=== PATIENT | female | born 1955 | race Caucasian/White ===

== ENCOUNTER 2017-04-28 14:41 | Emergency (ER) | payer OTHER ==
[~2017-04-28] VITALS: Ht 149.9 cm; Wt 70.3 kg
--- NOTE | ~2017-04-28 | EKG ---
[place] [address] [address] [facility] [address] [place] [address] ELECTROCARDIOGRAM REPORT Name: DEANDRE MARTINEZ Room #: DEP Ge#: [id number] Admission: 04/28/17 Attend Phys: Discharge: 04/28/17 Date of : 57 Report #: [id number] THIS REPORT FOR: //name// [facility] ED Test Date: 2017-04-28 Test Time: 15:18:22 Pat Name: DEANDRE MARTINEZ Department: Room: Gender: F Psych Coordinator: Paulino WHIPPLE RN : 1955 Requested By: Joey Correia Order Number: [id number] MD: Figueroa Ceja Measurements Intervals [place] Rate: 68 P: 37 [place]: 178 QRS: 25 QRSD: 92 T: 56 QT: 391 QTc: 416 Interpretive Statements Sinus rhythm No significant abnormality No previous ECG available for comparison Electronically Signed On 04-29-2017 7:56:20 GUITAR TECHNICIAN by Figueroa Ceja [email or web address] <ELECTRONICALLY SIGNED> By: Figueroa Ceja MD, [facility] 04/29/17 0756 1518 1518 Figueroa Ceja MD, FAC /EPI
[2017-04-28 15:53] LABS: ABSOLUTE NEUTROPHILS 7.2 thou/uL (1.4-8.2); BASOPHILS 0.7 % (0.0-2.0); EOSINOPHILS 0.4 % (0.0-3.0); HEMATOCRIT 44.3 % (37.0-47.0); HEMOGLOBIN 15.2 gm/dL (12.0-15.0); LYMPHOCYTES 9.9 % (24.0-44.0); MCH 30.9 pg (26.0-34.0); MCHC 34.4 g/dL (28.0-37.0); MCV 89.9 fL (80.0-100.0); MONOCYTES 10.3 % (1.0-8.0); PLATELET COUNT 236 thou/uL (150-400); POLYS 78.7 % (36.0-66.0); RBC 4.93 mil/uL (4.20-5.00); RDW 13.4 % (10.5-14.5); WBC 9.2 thou/uL (4.0-11.0)
[2017-04-28 16:01] LABS: ANION GAP 6 mmol/L (7-16); BUN 23 mg/dL (7-18); CALCIUM 9.1 mg/dL (8.5-10.1); CHLORIDE 103 mmol/L (98-107); CO2 28 mmol/L (21-32); GLUCOSE 116 mg/dL (74-106); POTASSIUM 4.3 mmol/L (3.5-5.1); SODIUM 137 mmol/L (136-145)
[2017-04-28 16:10] LABS: ALBUMIN 3.4 g/dL (3.4-5.0); LIPASE 253 U/L (73-393); SGOT 20 U/L (15-37); SGPT 42 U/L (30-65); TOTAL PROTEIN 6.3 g/dL (6.4-8.2); TROPONIN-I < 0.04 ng/mL (<0.06)
[2017-04-28] MEDS ORDERED: NITROGLYCERIN0.4 MG SUBLING (16:26)
[2017-04-28] MEDS ORDERED: METOPROLOL SUCC50 MG PO (16:27)
[2017-04-28] MEDS ORDERED: LIORESAL 10 MG10 MG PO (16:27)
[2017-04-28] MEDS ORDERED: LOSARTAN POTAS100 MG PO (16:28)
[2017-04-28] MEDS ORDERED: ROPINIROLE HCL2 MG PO (16:28)
[2017-04-28] MEDS ORDERED: ATROVENT HFA14 GM INH (16:30)
[2017-04-28] MEDS ORDERED: VITAMIN D-32000 UNI1 PO (16:30)
[2017-04-28] MEDS ORDERED: WELLBUTRIN SR150 MG PO (16:30)
[2017-04-28] MEDS ORDERED: ATIVAN0.5 MG PO (16:31)
[2017-04-28] MEDS ORDERED: TRAMADOL 50 MG50 MG PO (16:31)
[2017-04-28] MEDS ORDERED: OMEPRAZOLE 20 M20 M1 PO (16:31)
[2017-04-28] MEDS ORDERED: ADVAIR 500-501 EACH INH (16:32)
[2017-04-28] MEDS ORDERED: NORVASC5 MG PO (16:32)
[2017-04-28] MEDS ORDERED: ZOFRAN ODT4 MG PO ×2 (16:32→18:15)
[2017-04-28] MEDS ORDERED: PRAVACHOL40 MG PO (16:32)
[2017-04-28 17:27] LABS: URINE BILIRUBIN NEGATIVE (Negative); URINE BLOOD NEGATIVE (Negative); URINE CLARITY CLEAR; URINE COLOR YELLOW; URINE GLUCOSE-RANDOM* NEGATIVE (Negative); URINE KETONES NEGATIVE (Negative); URINE LEUKOCYTES-REFLEX NEGATIVE (Negative); URINE NITRITE-REFLEX NEGATIVE (Negative); URINE PROTEIN (DIPSTICK) NEGATIVE (Negative); URINE UROBILINOGEN 0.2 E.U./dl (0.2-1.0)
[2017-04-28] MEDS ORDERED: CARAFATE 11 GM/10 M1 PO (18:15)
[2017-04-28] MEDS ORDERED: PHENERGAN 25 MG25 M1 PO (18:15)
[2017-04-28] MEDS ORDERED: PANTOPRAZOLE SO40 M1 PO (18:15)
== END 2017-04-28 18:42 | disposition home or self-care (01) ==
LOC: ER 14:41
PROVIDERS: Emergency Medicine
DX: K21.9 Gastro-esophageal reflux disease without esophagitis (principal); Z90.49 Acquired absence of other specified parts of digestive tract; Z88.1 Allergy status to other antibiotic agents; Z88.8 Allergy status to other drugs, medicaments and biological substances

== ENCOUNTER 2018-10-19 02:43 | Emergency (ER) | payer BC ==
[~2018-10-19] VITALS: Ht 149.9 cm; Wt 68.0 kg
[~2018-10-19 02:43] MED LIST: ADVAIR 500-501 EACH INH; ATIVAN0.5 MG PO; ATROVENT HFA14 GM INH; CARAFATE 11 GM/10 M1 PO; LIORESAL 10 MG10 MG PO; LOSARTAN POTAS100 MG PO; METOPROLOL SUCC50 MG PO; NITROGLYCERIN0.4 MG SUBLING; NORVASC5 MG PO; OMEPRAZOLE 20 M20 M1 PO; PANTOPRAZOLE SO40 M1 PO; PHENERGAN 25 MG25 M1 PO; PRAVACHOL40 MG PO; ROPINIROLE HCL2 MG PO; TRAMADOL 50 MG50 MG PO; VITAMIN D-32000 UNI1 PO; WELLBUTRIN SR150 MG PO; ZOFRAN ODT4 MG PO
[2018-10-19 04:09] LABS: ABSOLUTE NEUTROPHILS 3.8 thou/uL (1.4-8.2); BASOPHILS 0.7 % (0.0-2.0); EOSINOPHILS 3.1 % (0.0-3.0); HEMATOCRIT 44.3 % (37.0-47.0); HEMOGLOBIN 15.1 gm/dL (12.0-15.0); LYMPHOCYTES 14.8 % (24.0-44.0); MCH 31.2 pg (26.0-34.0); MCV 91.7 fL (80.0-100.0); MONOCYTES 10.3 % (1.0-8.0); PLATELET COUNT 243 thou/uL (150-400); POLYS 71.1 % (36.0-66.0); RBC 4.83 mil/uL (4.20-5.00); RDW 13.6 % (10.5-14.5); WBC 5.4 thou/uL (4.0-11.0)
[2018-10-19 04:14] LABS: ANION GAP 10 mmol/L (7-16); BUN 19 mg/dL (7-18); CALCIUM 9.6 mg/dL (8.5-10.1); CHLORIDE 104 mmol/L (98-107); CO2 28 mmol/L (21-32); CREATININE 0.9 mg/dL (0.6-1.0); GLUCOSE 109 mg/dL (74-106); SODIUM 142 mmol/L (136-145)
[2018-10-19 04:25] LABS: ALBUMIN 3.8 g/dL (3.4-5.0); LIPASE 150 U/L (73-393); SGOT 18 U/L (15-37); SGPT 34 U/L (30-65); TOTAL BILIRUBIN 0.3 mg/dL (<0.1-1.0); TOTAL PROTEIN 7.3 g/dL (6.4-8.2); TROPONIN-I <0.06 ng/mL (<0.06)
[2018-10-19] MEDS ORDERED: ONDANSETRON ODT8 MG PO (05:11)
[2018-10-19] MEDS ORDERED: CLONIDINE0.1 PO (05:11)
[2018-10-19 05:58] LABS: URINE BILIRUBIN NEGATIVE (Negative); URINE BLOOD TRACE (Negative); URINE CLARITY SL CLOUDY; URINE COLOR YELLOW; URINE GLUCOSE-RANDOM* NEGATIVE (Negative); URINE KETONES NEGATIVE (Negative); URINE NITRITE-REFLEX NEGATIVE (Negative); URINE PROTEIN (DIPSTICK) TRACE (Negative); URINE SPECIFIC GRAVITY 1.015 (1.005-1.035); URINE UROBILINOGEN 0.2 E.U./dl (0.2-1.0)
[2018-10-19 06:05] VITALS: BP 154/88
[2018-10-19 06:07] LABS: URINE LEUKOCYTES-REFLEX 1+ (Negative)
[2018-10-19 06:20] LABS: CASTS None Seen /LPF (None Seen); SQUAMOUS 4-10 Moderate /LPF (0-3)
[2018-10-19 06:21] LABS: BACTERIA-REFLEX 1-9 Few /HPF (None Seen); CRYSTALS None Seen /LPF (None Seen); URINE RBC 0-2 Rare /HPF (0-2); URINE WBC-REFLEX >25 Many /HPF (0-5); WBC CLUMPS Moderate (None Seen)
--- NOTE | 2018-10-19 08:39 | EKG ---
[place] [address] [place] [address] ELECTROCARDIOGRAM REPORT Name: DEANDRE MARTINEZ Room #: DEP [place]#: [id number] Admission: 10/19/18 Attend Phys: Discharge: 10/19/18 Date of : 57 Report #: [id number] THIS REPORT FOR: //name// [facility] ED Test Date: 2018-10-19 Test Time: 04:03:47 Pat Name: DEANDRE MARTINEZ Department: Room: Gender: F Communications Project Manager: KAILA : 1955 Requested By: Clay Cespedes Order Number: [id number] MD: Figueroa Ceja Measurements Intervals [place] Rate: 91 P: 35 TN: 164 QRS: 19 QRSD: 82 T: 33 QT: 368 QTc: 453 Interpretive Statements Sinus rhythm Normal tracing Compared to ECG 04/28/2017 15:18:22 No significant change was found Electronically Signed On 10-19-2018 8:39:42 CDT by Figueroa Ceja [email or web address] <ELECTRONICALLY SIGNED> By: Figueroa Ceja MD, [facility] 10/19/18 0839 [id number] Figueroa Ceja MD, FACC /EPI
== END 2018-10-19 06:05 | disposition home or self-care (01) ==
LOC: ER 02:43
PROVIDERS: Emergency Medicine
DX: I16.0 Hypertensive urgency (principal); J98.01 Acute bronchospasm; R11.2 Nausea with vomiting, unspecified; Z85.528 Personal history of other malignant neoplasm of kidney; Z90.5 Acquired absence of kidney; Z90.49 Acquired absence of other specified parts of digestive tract; Z88.1 Allergy status to other antibiotic agents; Z88.2 Allergy status to sulfonamides

== ENCOUNTER 2019-02-20 01:53 | Emergency (ER) | payer BC ==
[~2019-02-20] VITALS: Ht 149.9 cm; Wt 67.6 kg
[2019-02-20 01:53] VITALS: BP 169/81
[~2019-02-20 01:53] MED LIST changes: +CLONIDINE0.1 PO; +ONDANSETRON ODT8 MG PO
== END 2019-02-20 03:14 | disposition home or self-care (01) ==
LOC: ER 01:53
DX: M79.671 Pain in right foot (principal); Z88.1 Allergy status to other antibiotic agents; Z88.2 Allergy status to sulfonamides; Z90.5 Acquired absence of kidney

== ENCOUNTER 2019-04-11 21:08 | Emergency (ER) | payer BC ==
[~2019-04-11] VITALS: Ht 149.9 cm; Wt 62.1 kg
[2019-04-11 21:41] LABS: URINE BILIRUBIN NEGATIVE (Negative); URINE BLOOD 2+ (Negative); URINE CLARITY CLOUDY; URINE COLOR YELLOW; URINE GLUCOSE-RANDOM* NEGATIVE (Negative); URINE KETONES TRACE (Negative); URINE NITRITE-REFLEX NEGATIVE (Negative); URINE PROTEIN (DIPSTICK) 2+ (Negative); URINE SPECIFIC GRAVITY 1.015 (1.005-1.035); URINE UROBILINOGEN 0.2 E.U./dl (0.2-1.0)
[2019-04-11 21:47] LABS: URINE LEUKOCYTES-REFLEX 3+ (Negative)
[2019-04-11 21:53] LABS: HEMATOCRIT 40.8 % (37.0-47.0); HEMOGLOBIN 13.6 gm/dL (12.0-15.0); MCH 30.3 pg (26.0-34.0); MCHC 33.2 g/dL (28.0-37.0); MCV 91.1 fL (80.0-100.0); PLATELET COUNT 227 thou/uL (150-400); RBC 4.48 mil/uL (4.20-5.00); RDW 13.5 % (10.5-14.5); WBC 11.3 thou/uL (4.0-11.0)
[2019-04-11 22:01] LABS: CALCIUM 8.4 mg/dL (8.5-10.1); CREATININE 1.6 mg/dL (0.6-1.0); POTASSIUM 3.2 mmol/L (3.5-5.1)
[2019-04-11 22:07] LABS: ALBUMIN 3.3 g/dL (3.4-5.0); TOTAL BILIRUBIN 0.4 mg/dL (<0.1-1.0); TOTAL PROTEIN 7.5 g/dL (6.4-8.2)
[2019-04-11 22:15] LABS: URINE WBC-REFLEX >25 Many /HPF (0-5)
[2019-04-11 22:16] LABS: BACTERIA-REFLEX 1-9 Few /HPF (None Seen); CASTS None Seen /LPF (None Seen); CRYSTALS None Seen /LPF (None Seen); SQUAMOUS 0-3 Few /LPF (0-3); URINE RBC 0-2 Rare /HPF (0-2)
[2019-04-11 22:43] LABS: ABSOLUTE NEUTROPHILS 9.5 thou/uL (1.4-8.2); ANISOCYTOSIS 1+
[2019-04-11] MEDS ORDERED: CEFDINIR300 MG PO (23:36)
[2019-04-11 23:57] VITALS: BP 122/62
== END 2019-04-12 00:07 | disposition home or self-care (01) ==
LOC: ER 21:08
PROVIDERS: Emergency Medicine
DX: N39.0 Urinary tract infection, site not specified (principal); Z88.2 Allergy status to sulfonamides; Z88.1 Allergy status to other antibiotic agents; Z91.040 Latex allergy status

== ENCOUNTER 2019-05-18 11:55 | Emergency (ER) | payer BC ==
[~2019-05-18] VITALS: Ht 149.9 cm; Wt 61.2 kg
[~2019-05-18 11:55] MED LIST changes: +CEFDINIR300 MG PO
[2019-05-18 12:25] VITALS: BP 182/92
[2019-05-18 13:40] LABS: ABSOLUTE NEUTROPHILS 3.4 thou/uL (1.4-8.2); BASOPHILS 1.8 % (0.0-2.0); EOSINOPHILS 1.3 % (0.0-3.0); HEMATOCRIT 42.5 % (37.0-47.0); HEMOGLOBIN 14.2 gm/dL (12.0-15.0); LYMPHOCYTES 15.2 % (24.0-44.0); MCH 30.7 pg (26.0-34.0); MCHC 33.5 g/dL (28.0-37.0); MCV 91.9 fL (80.0-100.0); MONOCYTES 9.4 % (1.0-8.0); PLATELET COUNT 281 thou/uL (150-400); POLYS 72.3 % (36.0-66.0); RBC 4.63 mil/uL (4.20-5.00); RDW 13.9 % (10.5-14.5); WBC 4.7 thou/uL (4.0-11.0)
--- NOTE | 2019-05-18 13:44 | EKG ---
[facility] [place] [address] ELECTROCARDIOGRAM REPORT Name: DEANDRE MARTINEZ Chinmay Room #: PRE [facility].#: [id number] Admission: Attend Phys: Discharge: Date of : 57 Report #: [id number] THIS REPORT FOR: cc: Jose Juan Pena MD ~ THIS REPORT FOR: //name// [facility] ED Test Date: 2019-05-18 Test Time: 12:51:25 Pat Name: DEANDRE MARTINEZ Department: Room: Gender: F Beck Operator: dora : 1955 Requested By: Manuel Bridges Order Number: [id number] MD: Jose Juan Pena Measurements Intervals [place] Rate: 96 P: 54 [place]: 154 QRS: 41 QRSD: 85 T: 55 QT: 343 QTc: 434 Interpretive Statements Sinus rhythm Baseline wander in lead(s) V4 Compared to ECG 10/19/2018 04:03:47 No significant changes Electronically Signed On 05-18-2019 13:42:45 CDT by Jose Juan Pena [email or web address] <ELECTRONICALLY SIGNED> By: Jose Juan Pena MD 05/18/19 1342 1251 50 Jose Juan Pena MD /JACINTO
[2019-05-18 13:48] LABS: ANION GAP 10 mmol/L (7-16); BUN 12 mg/dL (7-18); CALCIUM 10.4 mg/dL (8.5-10.1); CHLORIDE 99 mmol/L (98-107); CO2 28 mmol/L (21-32); CREATININE 1.3 mg/dL (0.6-1.0); GLUCOSE 91 mg/dL (74-106); POTASSIUM 3.8 mmol/L (3.5-5.1); SODIUM 137 mmol/L (136-145)
[2019-05-18 13:58] LABS: ALBUMIN 4.1 g/dL (3.4-5.0); LIPASE 93 U/L (73-393); SGOT 16 U/L (15-37); SGPT 18 U/L (30-65); TOTAL BILIRUBIN 0.4 mg/dL (<0.1-1.0); TOTAL PROTEIN 7.7 g/dL (6.4-8.2); TROPONIN-I <0.06 ng/mL (<0.06)
[2019-05-18] MEDS ORDERED: DOXYCYCLINE 10100 MG PO (14:19)
[2019-05-18] MEDS ORDERED: PROMETH-CODEIN 65 ML PO (14:19)
== END 2019-05-18 15:20 | disposition home or self-care (01) ==
LOC: ER 11:55
PROVIDERS: Physician Assistant
DX: J32.9 Chronic sinusitis, unspecified (principal); R10.13 Epigastric pain; Z87.440 Personal history of urinary (tract) infections; Z90.49 Acquired absence of other specified parts of digestive tract; Z91.040 Latex allergy status; Z88.1 Allergy status to other antibiotic agents; Z88.2 Allergy status to sulfonamides

== ENCOUNTER 2019-06-13 18:36 | Emergency (ER) | payer BC ==
[~2019-06-13] VITALS: Ht 149.9 cm; Wt 61.2 kg
[~2019-06-13 18:36] MED LIST changes: +DOXYCYCLINE 10100 MG PO; +PROMETH-CODEIN 65 ML PO
[2019-06-13 19:30] VITALS: BP 179/98
== END 2019-06-13 19:30 | disposition home or self-care (01) ==
LOC: ER 18:36
DX: H11.32 Conjunctival hemorrhage, left eye (principal); Z88.1 Allergy status to other antibiotic agents; Z88.2 Allergy status to sulfonamides; Z91.040 Latex allergy status; Z87.440 Personal history of urinary (tract) infections; Z90.49 Acquired absence of other specified parts of digestive tract; Z90.5 Acquired absence of kidney

== ENCOUNTER → 2020-02-05 | Emergency (ER) | payer BC | LOC: ER 15:48 | DX: R25.2 Cramp and spasm (principal); Z53.21 Procedure and treatment not carried out due to patient leaving prior to being seen by health care provider ==

== ENCOUNTER 2020-03-23 10:03 | Emergency (ER) | payer BC ==
[~2020-03-23] VITALS: Ht 149.9 cm; Wt 60.3 kg
[2020-03-23] MEDS ORDERED: ULTRAM 50MG TAB50 MG PO (11:06)
[2020-03-23 11:20] VITALS: BP 135/80
== END 2020-03-23 11:20 | disposition home or self-care (01) ==
LOC: ER 10:03
DX: M72.2 Plantar fascial fibromatosis (principal); M79.605 Pain in left leg; M79.604 Pain in right leg; Z79.899 Other long term (current) drug therapy; Z88.1 Allergy status to other antibiotic agents; Z88.2 Allergy status to sulfonamides; Z91.040 Latex allergy status

== ENCOUNTER 2020-04-25 11:49 | Inpatient (IN) | payer BC ==
[~2020-04-25] VITALS: Ht 149.9 cm; Wt 61.2 kg
--- NOTE | ~2020-04-25 | O ---
[facility] [place] [address] OPERATIVE REPORT Name: DEANDRE MARTINEZ Room #: 438-P ADM IN M.R.#: [id number] Admission: 04/25/20 Attend Phys: Esau Batista MD Discharge: Date of : 57 Report #: [id number] THIS REPORT FOR: cc: Nancy Perrin Pamela D. DO Hoestje,Airam Jiménez MD ~ DATE OF SERVICE: 04/25/2020 PREOPERATIVE DIAGNOSES: Left renal stones, left acute pyelonephritis/urinary tract infection, sepsis, acute kidney injury, solitary kidney. POSTOPERATIVE DIAGNOSES: Left renal stones, left acute pyelonephritis/urinary tract infection, sepsis, acute kidney injury, solitary kidney. PROCEDURES: Cystoscopy, left retrograde pyelogram, left ureteral stent placement, 6-Micronesian x 28 cm Contour. ESTIMATED BLOOD LOSS: 0 mL. SPECIMENS: Urine culture and urinalysis. DRAINS: A left ureteral stent, 6-Micronesian x 28 cm Contour. COMPLICATIONS: None. FINDINGS: Faintly opaque left renal stones that are seen as filling defects on retrograde pyelogram. There was no left hydronephrosis noted. There were clumps of white sediment and cloudy urine in the bladder initially and also draining from the left upper collecting system after stent was placed. INDICATIONS: A 65-year-old female had presented with sepsis. There was a large left renal pelvic and lower pole stones; however, no hydronephrosis noted. She does have a solitary kidney with a history of partial nephrectomy and due to the septic picture and acute renal failure, I felt that emergent stent placement was indicated. I discussed the reason for the procedure and risks including bleeding, infection, ureteral injury, inability to place the stent, need for further procedures to remove the stones potentially needing a percutaneous nephrostomy tube if stent was unable to be placed or for future procedures. She voiced understanding and signed the informed consent. DESCRIPTION OF PROCEDURE: The patient was placed supine on the operating room suite. She was prepped and draped in the usual sterile fashion. She was already on Rocephin. The urethral meatus was somewhat atrophic and therefore, I used the 17-Micronesian rigid cystoscope first, advanced this easily into the bladder. There was white clumps of sediment noted in her bladder. On exam, the [address] [address] OPERATIVE REPORT Name: DEANDRE MARTINEZ Room #: 438-P [facility] IN .R.#: [id number] Admission: 04/25/20 Attend Phys: Esau Batista MD Discharge: Date of : 57 Report #: [id number] left ureteral orifice was visualized, but overall visualization was somewhat compromised due to the cloudy urine. Fluoroscopy over the left renal field revealed many surgical clips around the upper pole of the kidney and what appeared to be faint opacities, likely the renal stones in the pelvic and lower pole area of the kidney. The 5-Micronesian ureteral catheter was unable to be advanced through the 17-Micronesian scope, so this was exchanged back to the 22.5 Micronesian rigid cystoscope into the bladder and the 5-Micronesian ureteral catheter was advanced into the left ureteral orifice and left retrograde pyelogram performed. There was no evidence of hydronephrosis and the stones appeared now as filling defects occupying most of the renal pelvis in lower pole area. The catheter was removed. The straight tip 0.035 inch sensor wire was then advanced into the left ureteral orifice and easily up into the left renal pelvis. The 5-Micronesian pigtail catheter was advanced over the wire into the pelvic area and the wire removed. Retrograde pyelogram was repeated to confirm correct intrarenal placement. Also, the ureteral length was noted from the ureteral catheter markings. The wire was replaced and the catheter backloaded off the wire. I then selected a 6-Micronesian x 28 cm stent was advanced and the strings were removed. The stent was advanced over the wire. That was not enough. Due to the lack of hydronephrosis, I was unable to obtain a good coil in the renal pelvis, but the proximal end was in the left renal collecting system and I obtained a good coil in the bladder after the wire was removed. Some cloudy efflux was noted from the stent perforations, both 30-degree and 70-degree lens were then used to look around the bladder. Again, visualization was somewhat compromised due to the cloudy urine, but no tumors were seen and the scope was removed. The patient was then placed back in supine position, awakened and taken to recovery room in stable condition. There were no complications. She tolerated the procedure well and I called her following the procedure to update him on findings and plan. By: 08 26 iAram Springer MD /jean-paul
[~2020-04-25 11:49] MED LIST changes: +ULTRAM 50MG TAB50 MG PO
[2020-04-25 11:50] VITALS: BP 178/91
[2020-04-25 12:43] LABS: ABSOLUTE NEUTROPHILS 11.8 thou/uL (1.4-8.2); BASOPHILS 0.6 % (0.0-2.0); EOSINOPHILS 0.6 % (0.0-3.0); HEMATOCRIT 38.6 % (37.0-47.0); HEMOGLOBIN 12.4 gm/dL (12.0-15.0); LYMPHOCYTES 3.8 % (24.0-44.0); MCHC 32.1 g/dL (28.0-37.0); MCV 84.1 fL (80.0-100.0); MONOCYTES 7.3 % (1.0-8.0); PLATELET COUNT 323 thou/uL (150-400); POLYS 87.7 % (36.0-66.0); RBC 4.59 mil/uL (4.20-5.00); RDW 15.9 % (10.5-14.5); WBC 13.5 thou/uL (4.0-11.0)
[2020-04-25 12:56] LABS: CALCIUM 9.7 mg/dL (8.5-10.1); CREATININE 3.4 mg/dL (0.6-1.0); POTASSIUM 4.1 mmol/L (3.5-5.1)
[2020-04-25 13:02] LABS: ALBUMIN 3.5 g/dL (3.4-5.0); TOTAL BILIRUBIN 0.6 mg/dL (0.2-1.0); TOTAL PROTEIN 7.8 g/dL (6.4-8.2)
[2020-04-25 15:14] VITALS: BP 157/88
[2020-04-25 15:49] VITALS: BP 154/86
[2020-04-25 19:51] LABS: URINE BILIRUBIN NEGATIVE (Negative); URINE BLOOD 3+ (Negative); URINE CLARITY CLEAR; URINE COLOR YELLOW; URINE GLUCOSE-RANDOM* NEGATIVE (Negative); URINE KETONES NEGATIVE (Negative); URINE NITRITE-REFLEX NEGATIVE (Negative); URINE PROTEIN (DIPSTICK) TRACE (Negative); URINE UROBILINOGEN 0.2 E.U./dl (0.2-1.0)
[2020-04-25 19:52] LABS: URINE LEUKOCYTES-REFLEX 2+ (Negative)
[2020-04-25 19:53] VITALS: BP 130/77
[2020-04-25 20:10] LABS: SQUAMOUS 0-3 Few /LPF (0-3)
[2020-04-25 20:11] LABS: CASTS None Seen /LPF (None Seen); CRYSTALS None Seen /LPF (None Seen); MUCUS 0-3 Light strn/LPF (None Seen); URINE RBC >20 Many /HPF (0-2); URINE WBC-REFLEX >25 Many /HPF (0-5)
[2020-04-25 20:24] LABS: URINE BILIRUBIN NEGATIVE (Negative); URINE BLOOD 3+ (Negative); URINE GLUCOSE-RANDOM* NEGATIVE (Negative); URINE KETONES NEGATIVE (Negative); URINE LEUKOCYTES 3+ (Negative); URINE NITRITE NEGATIVE (Negative); URINE PROTEIN (DIPSTICK) 2+ (Negative); URINE UROBILINOGEN 0.2 E.U./dl (0.2-1.0)
[2020-04-25 20:25] LABS: URINE CLARITY HAZY; URINE COLOR PINK
[2020-04-25 20:28] LABS: CASTS None Seen /LPF (None Seen); MUCUS None Seen strn/LPF (None Seen); SQUAMOUS None Seen /LPF (0-3); URINE RBC >20 Many /HPF (0-2); URINE WBC >25 Many /HPF (0-5)
[2020-04-25 20:29] LABS: CRYSTALS None Seen /LPF (None Seen)
[2020-04-26 04:16] VITALS: BP 109/61
[2020-04-26 08:03] VITALS: BP 111/66
[2020-04-26 16:00] VITALS: BP 138/67
[2020-04-26 16:20] VITALS: BP 138/75
[2020-04-26 21:31] VITALS: BP 141/83
[2020-04-27 05:57] LABS: HEMATOCRIT 32.3 % (37.0-47.0); MCH 26.9 pg (26.0-34.0); MCHC 31.5 g/dL (28.0-37.0); MCV 85.4 fL (80.0-100.0); RBC 3.78 mil/uL (4.20-5.00); RDW 15.9 % (10.5-14.5); WBC 11.1 thou/uL (4.0-11.0)
[2020-04-27 06:01] LABS: CALCIUM 8.7 mg/dL (8.5-10.1); CREATININE 4.2 mg/dL (0.6-1.0); POTASSIUM 4.3 mmol/L (3.5-5.1)
[2020-04-27 06:04] LABS: HEMOGLOBIN 10.2 gm/dL (12.0-15.0)
[2020-04-27 08:09] VITALS: BP 150/111
[2020-04-27 16:17] VITALS: BP 162/83
[2020-04-27 20:10] VITALS: BP 157/87
[2020-04-28] MEDS ORDERED: ONDANSETRON HCL4 M3 PO (03:44)
[2020-04-28 04:15] VITALS: BP 173/96
[2020-04-28 04:46] LABS: HEMATOCRIT 34.7 % (37.0-47.0); HEMOGLOBIN 11.2 gm/dL (12.0-15.0); MCH 27.1 pg (26.0-34.0); MCHC 32.3 g/dL (28.0-37.0); MCV 83.8 fL (80.0-100.0); RBC 4.14 mil/uL (4.20-5.00); RDW 15.9 % (10.5-14.5); WBC 10.2 thou/uL (4.0-11.0)
[2020-04-28 04:55] LABS: CALCIUM 9.3 mg/dL (8.5-10.1); CREATININE 4.4 mg/dL (0.6-1.0); POTASSIUM 4.3 mmol/L (3.5-5.1)
[2020-04-28 07:30] VITALS: BP 189/86
[2020-04-28 09:13] VITALS: BP 171/105
[2020-04-28 16:35] VITALS: BP 186/81
[2020-04-28 20:03] VITALS: BP 187/100
[2020-04-28 23:49] VITALS: BP 167/91
[2020-04-29 08:53] VITALS: BP 173/99
[2020-04-29 08:57] LABS: CALCIUM 9.1 mg/dL (8.5-10.1); POTASSIUM 4.6 mmol/L (3.5-5.1)
[2020-04-29 09:01] LABS: CREATININE 2.8 mg/dL (0.6-1.0)
[2020-04-29 10:10] VITALS: BP 151/74
[2020-04-29 15:02] VITALS: BP 158/91
[2020-04-29 20:10] VITALS: BP 151/88
[2020-04-30 05:50] LABS: CALCIUM 9.1 mg/dL (8.5-10.1); CREATININE 2.4 mg/dL (0.6-1.0); PHOSPHORUS 2.2 mg/dL (2.5-4.9); POTASSIUM 4.4 mmol/L (3.5-5.1)
[2020-04-30 07:30] VITALS: BP 152/75
[2020-04-30 16:00] VITALS: BP 140/82
[2020-04-30 19:16] VITALS: BP 138/81
[2020-05-01 05:44] LABS: ALBUMIN 3.1 g/dL (3.4-5.0); CALCIUM 9.1 mg/dL (8.5-10.1); PHOSPHORUS 1.9 mg/dL (2.5-4.9)
--- NOTE | 2020-05-01 07:44 | EKG ---
[place] [address] [facility] [place] [address] ELECTROCARDIOGRAM REPORT Name: DEANDRE MARTINEZ Room #: 438- ADM IN M.R.#: [id number] Admission: 04/25/20 Attend Phys: Esau Batista MD Discharge: Date of : 57 Report #: [id number] [facility] Test Date: 2020-04-30 Test Time: 20:47:32 Pat Name: DEANDRE MARTINEZ Department: Room: 438 Gender: F Spoon Maker: : 1955 Requested By: Ruma Banegas Order Number: [id number] MD: Figueroa Ceja Measurements Intervals [place] Rate: 99 P: 30 FL: 146 QRS: 46 QRSD: 88 T: 34 QT: 358 QTc: 460 Interpretive Statements Sinus rhythm Probable LVH with secondary repol abnrm Baseline wander in lead(s) I,II,aVR,aVL,aVF Compared to ECG 05/18/2019 12:51:25 No significant changes Electronically Signed On 05-01-2020 7:44:12 TACTICAL DECEPTION PLANS OFFICER by Figueroa Ceja [email or web address] <ELECTRONICALLY SIGNED> By: Figueroa Ceja MD, [facility] 05/01/20 0744 46 46 Figueroa Ceja MD, [facility] /EPI
[2020-05-01 07:54] VITALS: BP 148/91
[2020-05-01 16:52] VITALS: BP 154/95
[2020-05-01 20:10] VITALS: BP 146/91
[2020-05-02 03:59] VITALS: BP 166/90
[2020-05-02 04:38] LABS: HEMATOCRIT 38.1 % (37.0-47.0); HEMOGLOBIN 12.4 gm/dL (12.0-15.0); MCH 27.4 pg (26.0-34.0); MCHC 32.6 g/dL (28.0-37.0); MCV 84.2 fL (80.0-100.0); RBC 4.52 mil/uL (4.20-5.00); RDW 16.2 % (10.5-14.5); WBC 7.5 thou/uL (4.0-11.0)
[2020-05-02 04:46] VITALS: BP 158/91
[2020-05-02 04:59] LABS: CALCIUM 10.3 mg/dL (8.5-10.1); CREATININE 1.9 mg/dL (0.6-1.0); MAGNESIUM 1.5 mg/dL (1.8-2.4); POTASSIUM 3.7 mmol/L (3.5-5.1)
[2020-05-02 07:15] VITALS: BP 166/82
[2020-05-02] MEDS ORDERED: FLORANEX GRANU1 EACH PO (12:01)
[2020-05-02] MEDS ORDERED: CALCIUM + VITA1 EACH PO (12:01)
[2020-05-02] MEDS ORDERED: FELODIPINE 5 MG5 M1 PO (12:01)
[2020-05-02] MEDS ORDERED: CEFUROXIME500 MG PO (12:01)
[2020-05-02] MEDS ORDERED: ACETAMINOPHEN325 M1 PO (12:01)
[2020-05-02 12:26] VITALS: BP 166/82
== END 2020-05-02 13:24 | disposition home or self-care (01) | DRG 853 ==
LOC: ER 11:49 → 4S 15:18 → EROBS 15:26 → 4S 15:27
PROVIDERS: Emergency Medicine; Hospitalist; Physician Assistant; Urology; ADMIT Internal Medicine; ATTEND Internal Medicine
PROC: BT1F1ZZ Fluoroscopy of Left Kidney, Ureter and Bladder using Low Osmolar Contrast (ICD-10-PCS; principal; 2020-04-25)
PROC: 0T778DZ Dilation of Left Ureter with Intraluminal Device, Via Natural or Artificial Opening Endoscopic (ICD-10-PCS; principal; 2020-04-25)
DX: A41.9 Sepsis, unspecified organism (principal); R65.21 Severe sepsis with septic shock; N17.0 Acute kidney failure with tubular necrosis; N20.1 Calculus of ureter; N10 Acute pyelonephritis; N18.9 Chronic kidney disease, unspecified; F41.1 Generalized anxiety disorder; R31.9 Hematuria, unspecified; A41.50 Gram-negative sepsis, unspecified; B96.4 Proteus (mirabilis) (morganii) as the cause of diseases classified elsewhere; Z20.822 Contact with and (suspected) exposure to COVID-19; J32.9 Chronic sinusitis, unspecified; G25.81 Restless legs syndrome; Z90.49 Acquired absence of other specified parts of digestive tract; Z90.5 Acquired absence of kidney; Z88.2 Allergy status to sulfonamides; Z88.1 Allergy status to other antibiotic agents; Z91.040 Latex allergy status; Z87.891 Personal history of nicotine dependence
CPT/HCPCS: 10195; 50101; 50478; 51767; 56674; 56815; 57160; 62110; 62900

== ENCOUNTER 2020-05-22 06:59 | Inpatient (IN) | payer BC ==
[~2020-05-22] VITALS: Ht 149.9 cm; Wt 55.8 kg
[2020-05-22] VITALS (7 sets, daily range): BP systolic 131–189; BP diastolic 63–103
--- NOTE | ~2020-05-22 | HC ---
[facility] [place] [address] CONSULTATION Name: DEANDRE MARTINEZ Room #: 439-P ADM IN M.R.#: [id number] Admission: 05/22/20 Attend Phys: Aurora Rodriguez MD Discharge: Date of : 57 Report #: [id number] THIS REPORT FOR: cc: Nancy Perrin Pamela D. DO Al-Absi, Ahmed I. MD ~ RENAL CONSULTATION REASON FOR CONSULTATION: Acute kidney injury. REASON FOR PRESENTATION: Flank pain. HISTORY OF PRESENT ILLNESS: This is a very well-known patient to me. She is a 65-year-old with past medical history of recurrent nephrolithiasis, chronic kidney disease, repeated episodes of urinary tract infections, status post right-sided nephrectomy, status post partial left-sided nephrectomy. She presented with worsening left-sided flank pain and was found to have an acute kidney injury. She was also to have Gram-positive cocci in blood with proteus in the urine. We have evaluated this patient a couple of weeks ago. At that time, her creatinine has leveled around 1.9. When she presented few days ago, she had a creatinine value of 1.9 and this has worsened to a level of 3.7 as of this morning. I was consulted to manage her acute kidney injury, chronic kidney disease. PAST MEDICAL HISTORY: 1. Recurrent nephrolithiasis. 2. Right renal cell carcinoma post complete nephrectomy. 3. Post left partial nephrectomy. 4. Recent stent of the left ureter. 5. Hypertension. 6. Appendectomy. FAMILY HISTORY: No known chronic kidney disease or renal cell carcinoma in the family. ALLERGIES: CIPRO AND SULFA. SOCIAL HISTORY: She is a past smoker. No drug or alcohol abuse. HOME MEDICATIONS: 1. Baclofen. 2. Metoprolol. 3. Lorazepam. Inpatient medications include vancomycin and cefepime. [facility] [address] [place] [address] CONSULTATION Name: MARTINEZDEANDRE Room #: 439-P [facility] IN [facility]#: [id number] Admission: 05/22/20 Attend Phys: Aurora Rodriguez MD Discharge: Date of : 57 Report #: [id number] REVIEW OF SYSTEMS: GENERAL: No fever or chills, but significant weakness. CARDIOVASCULAR: No chest pain or palpitation. PULMONARY: No cough or hemoptysis. GASTROINTESTINAL: No nausea or vomiting. GENITOURINARY: As per the history of present illness. NEUROLOGICAL: No headache, no dizziness. PHYSICAL EXAMINATION: VITAL SIGNS: Temperature 36.6, pulse rate is 75, respiratory rate is 18, blood pressure is 133/72. HEAD AND NECK: No jugular venous distention. CHEST: No crackles. CARDIOVASCULAR: No rub. ABDOMEN: Soft, nontender. LOWER EXTREMITIES: No edema. LABORATORY DATA: Hemoglobin is 9.9. Sodium is 135, potassium is 4.3, chloride is 101, carbon dioxide 19, BUN 34, creatinine 3.7 from yesterday. Labs from today pending. Renal ultrasound revealed a left renal stent with no hydronephrosis. ASSESSMENT/IMPRESSION/PLAN: 1. Acute kidney injury. 2. Chronic kidney disease. 3. Repeated urinary tract infections. 4. Gram-positive cocci in the blood. 5. The patient's acute kidney injury is well explained by her current septicemia, septic episode. 6. Discontinue Norvasc. 7. Continue with IV fluid. 8. Neurological evaluation. 9. ID evaluation. 10. We will continue to follow. By: 0810 0819 Sonali Montoya MD /nt
[~2020-05-22 06:59] MED LIST changes: +ACETAMINOPHEN325 M1 PO; +CALCIUM + VITA1 EACH PO; +CEFUROXIME500 MG PO; +FELODIPINE 5 MG5 M1 PO; +FLORANEX GRANU1 EACH PO; +ONDANSETRON HCL4 M3 PO
--- NOTE | 2020-05-22 07:30 | NUR ---
DR. OBANDO BEDSIDE FOR EXAM.
[2020-05-22 07:43] LABS: ABSOLUTE NEUTROPHILS 7.2 thou/uL (1.4-8.2); BASOPHILS 0.7 % (0.0-2.0); EOSINOPHILS 0.8 % (0.0-3.0); HEMATOCRIT 35.7 % (37.0-47.0); HEMOGLOBIN 11.8 gm/dL (12.0-15.0); LYMPHOCYTES 5.1 % (24.0-44.0); MCV 84.7 fL (80.0-100.0); MONOCYTES 12.5 % (1.0-8.0); PLATELET COUNT 270 thou/uL (150-400); POLYS 80.9 % (36.0-66.0); RBC 4.21 mil/uL (4.20-5.00); RDW 17.8 % (10.5-14.5); WBC 8.9 thou/uL (4.0-11.0)
[2020-05-22 07:52] LABS: CALCIUM 9.8 mg/dL (8.5-10.1); CREATININE 2.4 mg/dL (0.6-1.0); POTASSIUM 4.3 mmol/L (3.5-5.1)
[2020-05-22 07:58] LABS: URINE BILIRUBIN NEGATIVE (Negative); URINE BLOOD 3+ (Negative); URINE CLARITY CLOUDY; URINE COLOR YELLOW; URINE GLUCOSE-RANDOM* NEGATIVE (Negative); URINE KETONES NEGATIVE (Negative); URINE PROTEIN (DIPSTICK) 3+ (Negative); URINE UROBILINOGEN 0.2 E.U./dl (0.2-1.0)
[2020-05-22 08:00] LABS: URINE LEUKOCYTES-REFLEX 3+ (Negative); URINE NITRITE-REFLEX POSITIVE (Negative)
[2020-05-22 08:00] LABS: ALBUMIN 3.5 g/dL (3.4-5.0); TOTAL BILIRUBIN 0.6 mg/dL (0.2-1.0); TOTAL PROTEIN 7.8 g/dL (6.4-8.2)
[2020-05-22 08:31] LABS: CASTS None Seen /LPF (None Seen); CRYSTALS None Seen /LPF (None Seen); SQUAMOUS 0-3 Few /LPF (0-3)
[2020-05-22 08:32] LABS: BACTERIA-REFLEX >30 Many /HPF (None Seen); URINE WBC-REFLEX >25 Many /HPF (0-5)
--- NOTE | 2020-05-22 17:07 | NUR ---
A/O, calm and cooperative. complained of pain in left flank, pain medication given and worked. Dr. Rodriguez met the patient in the room after the patient got to the floor. Temperature was over 100, Tylenol given and tempearature was 99 afterwards. bed rest now, will keep monitoring.
[2020-05-23 05:09] VITALS: BP 136/79
--- NOTE | 2020-05-23 05:25 | NUR ---
ASSUMED PT CARE AT 1900.PT WAS OBSERVED LYING ON HER BED WITH HER EYES OPEN WATCHING TV.PT C/O FLANK PAIN,MAANGED WITH MED.PER REPORT,PT HAD ELEVATED TEMP DURING THE DAY SHIFT,NONE SO FAR THIS SHIFT.DR DONOVAN STARTED PT ON IV ABX.LAB CALLED A POSITIVE BLOOD CX ON PT,HOUSE SUPP CALLED AND NOTIFIED THE COLLEGE RECRUITER ON DUTY.PT GOT ANTACID FOR C/O HEARTBURN.CALL LIGHT WITHIN REACH.
[2020-05-23 06:30] LABS: HEMATOCRIT 30.3 % (37.0-47.0); HEMOGLOBIN 9.9 gm/dL (12.0-15.0); MCH 27.9 pg (26.0-34.0); MCHC 32.6 g/dL (28.0-37.0); MCV 85.6 fL (80.0-100.0); RBC 3.54 mil/uL (4.20-5.00); RDW 17.2 % (10.5-14.5)
[2020-05-23 06:33] LABS: CALCIUM 8.6 mg/dL (8.5-10.1); POTASSIUM 4.3 mmol/L (3.5-5.1)
[2020-05-23 06:38] LABS: CREATININE 3.7 mg/dL (0.6-1.0)
[2020-05-23 07:45] VITALS: BP 140/99
--- NOTE | 2020-05-23 11:41 | NUR ---
ORDERS RECEIVED FOR EVAL AND TREAT. OBSERVED Pt STAND AND WALK AROUND HER BED WITHOUT DIFFICULTY UPON ENTERING ROOM. Pt STATES SHE IS HAVING NO DIFFICULTY WITH HER MOBILITY AND IS DECLINING A FORMAL P.T. EVAL. Pt APPEARS SAFE FOR HOME WHEN MEDICALLY CLEAR
--- NOTE | 2020-05-23 12:33 | NUR ---
Assumed care of pt at 0700. Pt a&ox4. Pain controlled with prn pain meds. Urine strainer place in toilet. Up ad gema. IVF and IV antibiotics infusing. Renal ultrasound ordered. Pt refuses urinary catheter placement. Infectious disease and renal doctor consulted. Will continue to monitor.
--- NOTE | 2020-05-23 14:00 | NUR ---
ASSESSMENT: CM REVIEWED CHART AND SPOKE WITH PATIENT. PT WAS ADMITTED FOR UTI AND KIDNEY STONE. PT REPORTS THAT SHE LIVES AT HOME WITH HER SON, DAUGHTER IN LAW, AND THREE GRADNCHILDREN. PT REPORTS THAT SHE HAS ONE STEP TO ENTER THE HOME AND ABOUT 14-16 STEPS WITH HANDRAILS TO THE BASEMENT. PT REPORTS THAT SHE HAS NO HAD HH IN THE PAST. PT REPORTS SHE HAS NO DME AT HOME OR THE NEED FOR IT. PT IS CURRENTLY ON IV ANBX AND CONTINUING TO WATCH KIDNEY FUNCTION. PT IS NOT LIKELY DISCHARGING OVER THE WEEKEND. PT WAS VARIANCED BY PHYSICAL THEARPY SHE HAS NO NEED AND REPORTS AMBULATING OK. CM WILL CONTINUE TO FOLLOW TO ASSIST NEEDED. LIKELY NO NEEDS AT TIME OF DISCHARGE.
[2020-05-23 15:50] VITALS: BP 107/61
[2020-05-23 20:43] VITALS: BP 133/72
--- NOTE | 2020-05-24 02:53 | NUR ---
PT OBSERVED WALKING AROUND IN HER ROOM AT SHIFT CHANGE.PT C/O PAIN ON HER ABD,MANAGED WITH MED.PT STATED THAT SHE HAD A LOOSE BM THIS SHIFT,WAS NOT OBSERVED BY THIS NURSE.PT SLEEPING ON HER BED AT THIS TIME.CALL LIGHT WITHIN REACH.
[2020-05-24 08:00] VITALS: BP 173/94
[2020-05-24 08:28] LABS: ABSOLUTE NEUTROPHILS 4.9 thou/uL (1.4-8.2); BASOPHILS 0.4 % (0.0-2.0); HEMATOCRIT 30.9 % (37.0-47.0); HEMOGLOBIN 10.2 gm/dL (12.0-15.0); LYMPHOCYTES 5.1 % (24.0-44.0); MCH 28.2 pg (26.0-34.0); MCHC 32.9 g/dL (28.0-37.0); MCV 85.6 fL (80.0-100.0); MONOCYTES 7.5 % (1.0-8.0); PLATELET COUNT 228 thou/uL (150-400); RBC 3.61 mil/uL (4.20-5.00); RDW 17.7 % (10.5-14.5); WBC 5.7 thou/uL (4.0-11.0)
[2020-05-24 08:39] LABS: ALBUMIN 2.6 g/dL (3.4-5.0); CALCIUM 8.9 mg/dL (8.5-10.1); CREATININE 3.1 mg/dL (0.6-1.0); PHOSPHORUS 3.8 mg/dL (2.5-4.9); POTASSIUM 4.2 mmol/L (3.5-5.1); TOTAL BILIRUBIN 0.3 mg/dL (0.2-1.0); TOTAL PROTEIN 6.6 g/dL (6.4-8.2)
[2020-05-24 16:36] VITALS: BP 100/70
--- NOTE | 2020-05-24 17:06 | NUR ---
Assumed pt care at 7am.Assessment completed.vss.Pt was anxious but able to follow simple command .Assisted with tray setup. Fair appetite.Dr Rodriguez and Sea here,order noted.At noon,pt was given vancomycin ivpb. Few minutes later,pt called out to use bathroom.Diarrhea noted.Pt reported jerking and feeling hot from head to toes.She said she might be reacting to vanco. It was turned off and Dr Osei notified.Order noted.Pt wanted her family notified.Dtr in law came to see pt and meds was reviewed with both pt and dtr in law.Pt in bed at present eating dinner.No further c/o. Will continue to monitor.
[2020-05-24 19:55] VITALS: BP 189/98
[2020-05-25 00:50] VITALS: BP 168/89
--- NOTE | 2020-05-25 01:51 | NUR ---
PT WAS OBSERVED SLEEPING ON HER BED AT SHIFT CHANGE.PT REF HER LORAZEPAM AND BACLOFEN AT HS.PT C/O THAT THE MEDICATIONS ARE MAKING HER JERK.WHILE IN PT'S ROOM THIS NURSE DID NOT NOTICE ANY JERKING MOVEMETS FROM PTS BUT SHE STATED THAT SHE STILL HAVE THEM.PT ALERT BUT CONFUSED SOMETIMES.PT'S BP ELEVATED THIS SHIFT,PRN BLOOD PRESSURE MED GIVEN.PT WAS OBSERVED MESSING WITH HER IV ACCESS A COUPLE OF TIMES,PT WAS EDUCATED TO LEAVE THE IV SO THAT SHE DOES NOT PULL IT OUT.PT VOICED UNDERSTANDING.PT'S CALLED EARLIER INTO THE SHIFT,HE STATED THAT HE WANTS THE PHYSICIAN TO CALL HIM BECAUSE HE HAS SOME QUESTIONS THAT HE WANTS TO CLARIFY WITH HIM.PT HAS NOST BEEN ABLE TO SLEEP SO FAR.HOURLY ROUNDING MAINTAINED.CALL LIGHT WITHIN REACH.
[2020-05-25 03:00] VITALS: BP 165/96
[2020-05-25 04:03] LABS: CALCIUM 9.1 mg/dL (8.5-10.1); CREATININE 2.2 mg/dL (0.6-1.0); PHOSPHORUS 2.4 mg/dL (2.5-4.9); POTASSIUM 3.9 mmol/L (3.5-5.1)
[2020-05-25 07:20] VITALS: BP 166/99
--- NOTE | 2020-05-25 09:38 | NUR ---
Assumed care of pt at 0700. Pt a&ox4. Up ad gema. IVF and IV antibiotics infusing. Poor appetite. Noc RN reports some diarrhea. Pt refuses baclofen. No other concerns at this time. Will continue to monitor.
[2020-05-25 16:15] VITALS: BP 167/93
[2020-05-25 20:07] VITALS: BP 150/90
[2020-05-25 22:49] VITALS: BP 150/90
--- NOTE | 2020-05-26 06:20 | NUR ---
PT AOX4 WITH INTERMITTENT FORGETFULNESS. PT REPORTS 8/10 ABDOMINAL PAIN. PT RECEIVING PRN IV FENTANYL Q4HR WITH PRN PO NORCO Q4HR AND PRN PO APAP Q4HR AVAILABLE. PT DENIES SOB WHILE ON ROOM AIR. PT TOLERATING PO INTAKE OF FLUIDS AND HEART HEALTHY DIET WITHOUT ISSUE. PT WITHOUT NAUSEA OR EMESIS. PT AMBULATING INDEPENDENTLY IN ROOM AND TO BATHROOM, RESTING IN BED OTHERWISE. FREQUENT REPOSITIONING ENCOURAGED WHILE IN BED, PT SHIFTING INDEPENDENTLY. PT ENCOURAGED TO NOTIFY STAFF FOR ALL NEEDS, CALL LIGHT WITHIN REACH, BED LOCKED IN LOWEST POSITION, FREQUENT MONITORING WILL CONTINUE.
[2020-05-26 07:45] VITALS: BP 156/95
--- NOTE | 2020-05-26 10:25 | NUR ---
ASSUMED PT CARE AROUND 0715. PT ALERT X ORIENTED X4, INTERMITTENT FORGETFUL. ON ROOM AIR.IV LF FA SALINE LOCKED.UP AD CATHLEEN. [facility], BED IN LOW POSITION. WILL CALL APPROPRIATELY. WILL CONT TO MONITOR.
--- NOTE | 2020-05-26 11:28 | 2DMMODE ---
[facility] [place] [address] 2 D/M-MODE ECHOCARDIOGRAM Name: DEANDRE MARTINEZ Room #: 439-P ADM IN M.R.#: [id number] Admission: 05/22/20 Attend Phys: Aurora Rodriguez MD Discharge: Date of : 57 Report #: [id number] THIS REPORT FOR: cc: Nancy Perrin Pamela D. DO Lammoglia, Francisco J. MD ~ APPROVED REPORT Study performed: 05/26/2020 10:32:03 EXAM: Comprehensive 2D, Doppler, and color-flow Echocardiogram Patient Location: Bedside Room #: 439 Status: routine BSA: 1.49 HR: 87 bpm BP: 156/96 mmHg Rhythm: NSR Other Information Study Quality: Good Indications Hypertension/HDD R^O SBE 2D Dimensions RVDd: 24.75 mm IVSd: 8.92 (7-11mm) LVOT Diam: 18.19 (18-24mm) LVDd: 46.75 mm PWd: 12.20 (7-11mm) Ascending Ao: 35.25 (22-36mm) LVDs: 26.91 (25-40mm) Aortic Root: 27.37 mm IVC: 16.00 mm Volumes Left Atrial Volume (Systole) Single Plane 4CH: 75.31 mL Single Plane 2CH: 74.27 mL LA ESV Index: 54.00 mL/m2 Aortic Valve AoV Peak Mahendra.: 1.26 m/s AO Peak Gr.: 6.32 mmHg Mitral Valve [facility] [address] [place] [address] 2 D/M-MODE ECHOCARDIOGRAM Name: JUANDEANDRE Chinmay Room #: 439-P ADM IN .R.#: [id number] Admission: 05/22/20 Attend Phys: Chinmay Cruz Discharge: Date of : 57 Report #: [id number] IVRT: 87.66 ms Pulmonary Valve PV Peak Mahendra.: 1.12 m/s PV Peak Gr.: 4.98 mmHg Pulmonary Vein P Vein A: 0.34 m/s P Vein A Dur.: 133.8 msec Tricuspid Valve TR Peak Mahendra.: 2.78 m/s TR Peak Gr.: 30.81 mmHg PA Pressure: 36.00 mmHg Left Ventricle The left ventricle is normal size. There is normal LV segmental wall motion. There is normal left ventricular wall thickness. The left ventricular systolic function is normal. The left ventricular ejection fraction is within the normal range. LVEF is 50-55%. Grade I - abnormal relaxation pattern. Right Ventricle The right ventricle is normal size. The right ventricular systolic function is normal. Atria Left atrium is dilated. The right atrium size is normal. Aortic Valve The aortic valve is normal in structure. The Aortic valve is sclerotic. Trace aortic regurgitation. There is no aortic valvular stenosis. Mitral Valve The mitral valve is normal in structure. Mild mitral regurgitation. No evidence of mitral valve stenosis. Tricuspid Valve The tricuspid valve is normal in structure. There is trace tricuspid regurgitation. Estimated PAP 36 mmHg. There is mild pulmonary hypertension. Pulmonic Valve The pulmonary valve is normal in structure. There is no pulmonic valvular regurgitation. [facility] [address] [place] [address] 2 D/M-MODE ECHOCARDIOGRAM Name: DEANDRE MARTINEZ Room #: 439-P ADM IN ..#: [id number] Admission: 05/22/20 Attend Phys: Chinmay Cruz Discharge: Date of : 57 Report #: [id number] Great Vessels The aortic root is normal in size. IVC is normal in size and collapses >50% with inspiration. Pericardium There is no pericardial effusion. <Conclusion> The left ventricle is normal size. LVEF is 50-55%. There is normal LV segmental wall motion. Left atrium is dilated. The aortic valve is normal in structure. The Aortic valve is sclerotic. Trace aortic regurgitation. The mitral valve is normal in structure. Mild mitral regurgitation. The tricuspid valve is normal in structure. There is trace tricuspid regurgitation. Estimated PAP 36 mmHg. There is mild pulmonary hypertension. The pulmonary valve is normal in structure. The aortic root is normal in size. There is no pericardial effusion. <ELECTRONICALLY SIGNED> By: Ari Murray MD 05/26/201127 27 27 Ari Murray MD /INF
[2020-05-26] MEDS ORDERED: SODIUM BICARBO650 M3 PO (15:56)
[2020-05-26] MEDS ORDERED: FLOMAX0.4 MG PO (15:56)
[2020-05-26] MEDS ORDERED: VESICARE10 M1 PO (15:56)
[2020-05-26] MEDS ORDERED: AMOXICILLIN 50500 M1 PO (15:56)
[2020-05-26 16:10] VITALS: BP 170/92
[2020-05-26 16:40] VITALS: BP 156/95
[2020-05-26 16:46] VITALS: BP 156/95
== END 2020-05-26 18:02 | disposition home or self-care (01) | DRG 872 ==
LOC: ER 06:59 → 4S 11:14 → EROBS 11:14 → 4S 12:33
PROVIDERS: Emergency Medicine; Hospitalist; Specialist; ADMIT Hospitalist; ATTEND Hospitalist
DX: A41.9 Sepsis, unspecified organism (principal); N10 Acute pyelonephritis; E87.1 Hypo-osmolality and hyponatremia; N39.0 Urinary tract infection, site not specified; N17.9 Acute kidney failure, unspecified; N20.0 Calculus of kidney; K21.9 Gastro-esophageal reflux disease without esophagitis; I12.9 Hypertensive chronic kidney disease with stage 1 through stage 4 chronic kidney disease, or unspecified chronic kidney disease; N18.30 Chronic kidney disease, stage 3 unspecified; F32.9 Major depressive disorder, single episode, unspecified; F41.9 Anxiety disorder, unspecified; D64.9 Anemia, unspecified; Z90.49 Acquired absence of other specified parts of digestive tract; Z79.899 Other long term (current) drug therapy; Z87.442 Personal history of urinary calculi; Z88.5 Allergy status to narcotic agent; Z85.528 Personal history of other malignant neoplasm of kidney; Z88.2 Allergy status to sulfonamides; Z88.8 Allergy status to other drugs, medicaments and biological substances; Z91.040 Latex allergy status
CPT/HCPCS: 10102

== ENCOUNTER 2020-06-20 12:38 | Inpatient (IN) | payer OTHER, BC ==
[~2020-06-20] VITALS: Ht 149.9 cm; Wt 59.0 kg
[~2020-06-20 12:38] MED LIST changes: +AMOXICILLIN 50500 M1 PO; +FLOMAX0.4 MG PO; +SODIUM BICARBO650 M3 PO; +VESICARE10 M1 PO
[2020-06-20 12:47] VITALS: BP 151/89
[2020-06-20 13:44] LABS: ABSOLUTE NEUTROPHILS 9.5 thou/uL (1.4-8.2); BASOPHILS 0.5 % (0.0-2.0); EOSINOPHILS 0.6 % (0.0-3.0); HEMATOCRIT 36.3 % (37.0-47.0); LYMPHOCYTES 3.7 % (24.0-44.0); MCH 28.4 pg (26.0-34.0); MCV 86.2 fL (80.0-100.0); MONOCYTES 6.8 % (1.0-8.0); PLATELET COUNT 305 thou/uL (150-400); POLYS 88.4 % (36.0-66.0); RBC 4.21 mil/uL (4.20-5.00); RDW 16.8 % (10.5-14.5); WBC 10.8 thou/uL (4.0-11.0)
[2020-06-20 13:50] LABS: CALCIUM 9.3 mg/dL (8.5-10.1); CREATININE 2.6 mg/dL (0.6-1.0); POTASSIUM 4.8 mmol/L (3.5-5.1)
[2020-06-20 14:55] VITALS: BP 162/77
[2020-06-20 15:05] VITALS: BP 162/77
[2020-06-20 17:57] VITALS: BP 143/73
--- NOTE | 2020-06-20 19:27 | NUR ---
Admitted from ER due to L flank pain; transferred to bed safely. Admission assessment, history and assessment. On MS, not on telemetry; no complains and signs of chest pain, crushing sensation and heaviness. Assisted in ADLs. On room air. Vital signs stable. On regular diet- changed to clear liquid by Urology PA then NPO post midnight; pt informed and aware; night RN advised as well. Continent of bowel and bladder, able to go to the toilet; urine to be strained; urinalysis to be collected- night RN informed. With NS at 80cc/hr, infusing well at R AC; on IV antibiotics. Complained of pain, due PRN pain meds given as prescribed. Upon admssion and checking pt's belongings; found home meds: [place] and Zofran in her bag; counted in front of the pt, sent to pharmacy for safekeeping; stub attached to chart. Pt informed re: visitation and hazel policy. Pt seen and examined by Urology PA- for procedure tomorrow AM; consent to be signed; Urology team to be informed if pt develops fever and hypotension- night RN informed. Dr Rodriguez seen and examined patient; informed her about memory lapses noted during admission- will do cognitive tests on her. With BP elevation noted upon admission; rechecked- WNL. To continue monitoring patient.
[2020-06-20 19:49] LABS: URINE BILIRUBIN NEGATIVE (Negative); URINE BLOOD 3+ (Negative); URINE CLARITY CLEAR; URINE COLOR YELLOW; URINE GLUCOSE-RANDOM* NEGATIVE (Negative); URINE KETONES NEGATIVE (Negative); URINE PROTEIN (DIPSTICK) 2+ (Negative); URINE UROBILINOGEN 0.2 E.U./dl (0.2-1.0)
[2020-06-20 19:51] LABS: URINE LEUKOCYTES-REFLEX 2+ (Negative); URINE NITRITE-REFLEX POSITIVE (Negative)
[2020-06-20 19:58] LABS: SQUAMOUS 4-10 Moderate /LPF (0-3)
[2020-06-20 19:59] LABS: BACTERIA-REFLEX >30 Many /HPF (None Seen); URINE WBC-REFLEX >25 Many /HPF (0-5)
[2020-06-20 20:00] LABS: CASTS None Seen /LPF (None Seen); CRYSTALS None Seen /LPF (None Seen); URINE RBC 1-2 Rare /HPF (NONE SEEN)
[2020-06-20 21:05] VITALS: BP 120/65
[2020-06-21 04:44] LABS: CALCIUM 8.5 mg/dL (8.5-10.1); POTASSIUM 5.1 mmol/L (3.5-5.1)
[2020-06-21 04:48] LABS: BASOPHILS 0.3 % (0.0-2.0); EOSINOPHILS 0.1 % (0.0-3.0); HEMATOCRIT 32.5 % (37.0-47.0); HEMOGLOBIN 10.8 gm/dL (12.0-15.0); LYMPHOCYTES 5.3 % (24.0-44.0); MCH 28.6 pg (26.0-34.0); MCHC 33.1 g/dL (28.0-37.0); MCV 86.4 fL (80.0-100.0); MONOCYTES 8.3 % (1.0-8.0); PLATELET COUNT 264 thou/uL (150-400); RBC 3.76 mil/uL (4.20-5.00); RDW 17.1 % (10.5-14.5); WBC 10.5 thou/uL (4.0-11.0)
[2020-06-21 04:51] LABS: CREATININE 3.9 mg/dL (0.6-1.0)
--- NOTE | 2020-06-21 06:20 | NUR ---
patient up thru noc . anxiety noted c/o pain x3 thru noc prn given partial relief. elevated temp at 4am vitals rounding was given a prn acetaminophen to reduce fever. fever noted at 101.1 at 0600 . will continue to monitor. resident currently sitting up in bed.
[2020-06-21 08:12] VITALS: BP 121/62
[2020-06-21 12:16] VITALS: BP 98/59
--- NOTE | 2020-06-21 16:22 | NUR ---
ASSUMED PATIENT CARE AT APPROX. 0715. ASSESSMENT CHARTED. MEDICATIONS HELD PER NPO STATUS; VSS. PATIENT IS A&OX4 AND MAKES NEEDS KNOWN. PATIENT IS UP SBA TO THE BATHROOM WITH NO ISSUES. PATIENT WENT DOWN FOR A CYSTOSCOPY, LEFT URS, LITHOTRIPSY AND STENT PLACEMENT. PATIENT RETURNED AT APPROX 1200 VOICING FLANK PAIN AND DISCOMFORT FROM HYATT; PROVIDER NOTIFIED AND RECOMMENDED [facility] PLACEMENT FOR 24 HOURS. PATIENT MADE AWARE. PRN PAIN ANALGESIC( PO NEW ORDER) ADMINISTERED AND DID PROVIDE SOME RELIEF. ABX INFUSED AND FLUIDS INFUSING ON R AC; PRESSURE ALARM ON SO PATIENT EDUCATED ON KEEPING ARM STRENGTH. TOLERATING PO INTAKE WELL W NO ISSUES. PATIENT VOICES NO FURTHER NEEDS. FALL PRECAUTIONS IN PLACE PER PROTOCOL. WILL CONTINUE TO MONITOR AND FOLLOW PLAN OF CARE
[2020-06-21 16:47] VITALS: BP 107/70
[2020-06-21 19:06] VITALS: BP 112/58
--- NOTE | 2020-06-22 01:20 | NUR ---
ASSESSED AT START OF SHIFT. PT A&OX4. C/O PAIN IN FLANK AREA. PO PAIN MED GIVEN. IV INTACT AND FLUIDS INFUSING. FOLLEY TO D/D PARI COLOR URINE NOTED. ATIVAN GIVEN FOR ANXIETY. FALL PREC IN PLACE. PT ON RA. CALL LIGHT AT REACH WILL CONT TO MONITOR.
[2020-06-22 04:59] LABS: ALBUMIN 2.4 g/dL (3.4-5.0); CALCIUM 8.3 mg/dL (8.5-10.1); CREATININE 3.9 mg/dL (0.6-1.0); PHOSPHORUS 4.7 mg/dL (2.6-4.7); POTASSIUM 4.2 mmol/L (3.5-5.1)
[2020-06-22 07:10] VITALS: BP 120/72
[2020-06-22 07:15] VITALS: BP 120/72
[2020-06-22 16:00] VITALS: BP 134/88
--- NOTE | 2020-06-22 16:56 | NUR ---
ASSUMED PT CARE AROUND 0700. PT ALERT X ORIENTED X4. ON ROOM AIR.STAND BY ASSIST. IV RT AC/NS/80MLS/HR. NO SKIN ISSUES.EDMAR KING.PAIN PARTIALLY CONTROLLED BY PAIN MEDICINE.ENCOURAGING FLUIDS. MED SURG PATIENT. CALL LIGHT IN REACH. WILL CALL APPROPRIATELY. WILL CONT TO MONITOR.
[2020-06-22 19:03] VITALS: BP 145/76
--- NOTE | 2020-06-23 01:39 | NUR ---
ASSESSED AT START OF SHIFT. PT RESTING IN BED. IV INTACT AND FLUIDS INFUSING PT UP AD CATHLEEN TO THE BATHROOM. HYDROCODONE GIVEN FOR PAIN. PO FLUIDS ENCOURAGED. PT STATED PASSING GAS NO BM THIS SHIFT. CLEAR LUNG SOUNDS. CALL LIGHT AT REACH. WILL CONT TO MONITOR TILL EOS.
[2020-06-23 05:51] LABS: ALBUMIN 2.5 g/dL (3.4-5.0); CALCIUM 8.3 mg/dL (8.5-10.1); POTASSIUM 4.5 mmol/L (3.5-5.1)
[2020-06-23 07:30] VITALS: BP 147/73
--- NOTE | 2020-06-23 10:51 | NUR ---
ASSUMED PT CARE THIS AM. PT VSS, A&OX4. PATIENT ABLE TO MAKE NEEDS KNOWN. COMPLAINS OF LEFT FLANK PAIN, GAVE PAIN MEDS PER EMAR. URINE IS YELLOW IN COLOR, NO HERATURIA NOTED. PATIENT REPORTS LAST BOWEL MOVEMENT A FEW DAAYS AGO, ASKED IF SHE WANTED A STOOL SOFTENER AND PATIENT DECLINED. PATIENT ABLE TO AMBULATE INDEPENDENTLY. IV PATENT, FLUIDS INFUSING. REPORTS HEARTBURN, PHYSICIAN INFORMED. CALL LIGHT WITHIN REACH.
--- NOTE | 2020-06-23 13:48 | NUR ---
PT ADMITTED RELATED TO MULTIPAL KIDNEY STONES, L FLANK PAIN, RENAL COLIC. CM REVIEWED CHART AND SPOKE WITH CARE TEAM. CM MET WITH PT AT BEDSIDE THIS DAY. PT APPEARED TO BE A&O X4. CM ROLE INTRODUCED. PT INDICATED SHE LIVES IN A HOUSE WITH HER SPOUSE, SON, DTR IN LAW, AND THEIR 3 KIDS. PT INDICATED THERE AREN'T ANY STEPS TO ENTER THE HOME BUT A FULL FLIGHT TO THE BASEMENT WHERE PT GOES. 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 PT INDICATED NO HH HX AND NO SKILLED HX. PT INDICATED SHE PLANS TO RETURN HOME ONCE MEDICALLY STABLE. CM FOLLOWING REGARDING DC PLANNING. CARE TEAM INDICATED THAT PT MAY BE MEDICALLY STABLE TO DC HOME TOMORROW.
[2020-06-23 15:20] VITALS: BP 158/91
[2020-06-23 19:13] VITALS: BP 156/90
--- NOTE | 2020-06-24 02:44 | NUR ---
PT CARE ASSUMED WITH PT IN BED WATCHING TV.PT IS A/O X4.PT IS UP AD CATHLEEN.PT C/O LT FLANK PAIN AND NORCO GIVEN FOR PAIN MANAGEMENT.PT HAD LBM DAYS AGO AND REFUSED STOOL SOFTENER AND SAID SHE WILL ASK FOR ONE IF SHE NEEDS ONE.IV ACCESS ON RT AC WITH NS AT 80CC/HR.BREATHING TREATMENT OREDERED PRN PER PT REQUEST.WILL CONTINUE TO MONITOR POC
[2020-06-24 05:50] LABS: ALBUMIN 2.5 g/dL (3.4-5.0); CALCIUM 8.6 mg/dL (8.5-10.1); CREATININE 2.7 mg/dL (0.6-1.0); PHOSPHORUS 3.8 mg/dL (2.5-4.9); POTASSIUM 4.9 mmol/L (3.5-5.1)
[2020-06-24 07:51] VITALS: BP 176/96
[2020-06-24] MEDS ORDERED: CEFDINIR300 MG PO ×2 (08:40→11:31)
[2020-06-24] MEDS ORDERED: PROTONIX40 M2 PO (11:31)
[2020-06-24 12:23] VITALS: BP 176/96
--- NOTE | 2020-06-24 12:29 | NUR ---
CARE TEAM INDICATED THAT PT IS MEDICALLY STABLE TO DISCHARGE HOME THIS DAY. PT IS TO DC HOME TO SELF CARE. NO OTHER CM INTERVENTION INDICATED. PT'S FAMILY TO PROVIDE TRANSPORT HOME. CASE CLOSED.
--- NOTE | 2020-06-24 12:54 | NUR ---
Assumed pt care at 7am.Pt in and out of bed to bathroom byself.Assessment completed.vss.Pt c/o diarrhea x3 overnoc but not seen by any staff.Pt denied need for antidiarrhea. Am meds given with breakfast and well tolerated.Dr Rodriguez here,dc order noted.Dc summary compile and reviewed with pt and dtr inlaw.Saline lock dc'd.At 1245,pt dc home ambulatory accompanied by dtr in law.
--- NOTE | 2020-06-27 18:06 | PATH ---
[facility] [address] [place] [address] PATHOLOGY RPT PROCEDURE Name: ANGIE MARTINEZ Room #: 449-I DIS IN M.R.#: [id number] Admission: 06/20/20 Date of : 57 Discharge: 06/24/20 Report #: [id number] Path Case #: [id number] [facility] Accession Number: [id number] . 01 Material submitted: . ureter - LEFT URETERAL STONE. Modifiers: left . 01 Clinical history: . CYSTO W/ RETROGRADES . URETEROSCOPY . . 02 Diagnosis: Left ureteral stones: - Consistent with calculi. - The specimen is sent out for further processing. Report pending outside analysis with results to follow in an addendum. MBR 06/24/2020 1645 Local . 02 Addendum: . Outside report received from [facility], [address] [place] [address], [address], on case [id number], labeled with their number [id number], dated 06/27/2020. . Stone Analysis Report . Stone Composition Composition (percent) Magnesium Ammonium Phosphate 30 Calcium Phosphate Carbonate 50 Organic Material 20 TOTAL: 100 . The stone is 5.0 x 4.0 x 1.0 mm in size. It is cream and fitzpatrick in color and weighs approximately 20 milligrams. THE CALCULUS IS COMPOSED OF A MIXTURE OF MAGNESIUM AMMONIUM-PHOSPHATE (STRUVITE), ORGANIC MATERIAL AND CALCIUM PHOSPHATE CARBONATE (CARBONATE-APATITE). . LEFT URETERAL STONE. The presence of magnesium ammonium phosphate in the calculi has a high association with urea splitting bacteria. Clinical correlation is suggested. . . . . Antonio Abdullahi MD Environmental Director [address] [address] PATHOLOGY RPT PROCEDURE Name: ANGIE MARTINEZ Room #: 449-I [facility]#: [id number] Admission: 06/20/20 Date of : 57 Discharge: 06/24/20 Report #: [id number] Path Case #: [id number] . . A complete copy of the report is on file. . Technical and Professional services for the special studies performed by [facility], [address] [place] [address]. . (IUV:anjana 06/27/2020) AZJ/06/27/2020 Addendum Electronically Signed by Shawna Jefferson MD, Pathologist . 02 Electronically signed: . Shawna Jefferson MD, Pathologist NPI- [id number] . 01 Gross description: . The specimen is received fresh, labeled " Rafael Angie, left ureteral stones". The specimen consists of 2 fitzpatrick stones measuring up to 0.3 cm.. The specimen is forwarded to sendouts for further processing. ([facility]; 06/24/2020) ALVIN/ALVIN 06/24/[address] [place] [address] . 02 Pathologist provided ICD-10: N20.0 . 02 CPT . 829838 Specimen Comment: A courtesy copy of this report has been sent to [phone], [phone] Specimen Comment: [phone], Specimen Comment: Report sent to ,DR SAUNDERS / DR DONOVAN Performed at: [address], [place] [id number] MD Buzz Lyon MD Phone: [phone] Performed at: [address] [id number] MD Shawna Jefferson MD Phone: [phone]
== END 2020-06-24 12:47 | disposition home or self-care (01) | DRG 659 ==
LOC: ER 12:38 → EROBS 14:56 → 4W 14:56
PROVIDERS: Hospitalist; Nurse Practitioner; ADMIT Hospitalist; ATTEND Hospitalist
DX: N13.6 Pyonephrosis (principal); R65.11 Systemic inflammatory response syndrome (SIRS) of non-infectious origin with acute organ dysfunction; E43 Unspecified severe protein-calorie malnutrition; N20.2 Calculus of kidney with calculus of ureter; N17.0 Acute kidney failure with tubular necrosis; K21.9 Gastro-esophageal reflux disease without esophagitis; N18.4 Chronic kidney disease, stage 4 (severe); I12.9 Hypertensive chronic kidney disease with stage 1 through stage 4 chronic kidney disease, or unspecified chronic kidney disease; Z20.822 Contact with and (suspected) exposure to COVID-19; Z85.528 Personal history of other malignant neoplasm of kidney; Z79.899 Other long term (current) drug therapy; Z88.5 Allergy status to narcotic agent; Z88.2 Allergy status to sulfonamides; Z88.8 Allergy status to other drugs, medicaments and biological substances; Z88.1 Allergy status to other antibiotic agents; Z91.040 Latex allergy status; Z87.891 Personal history of nicotine dependence
CPT/HCPCS: 10047; 50101; 50164; 51620; 51796; 53650; 56674; 56815; 57160; 58732; 62110; 62900; 70005

== ENCOUNTER 2020-09-04 16:50 | Inpatient (IN) | payer OTHER ==
[~2020-09-04] VITALS: Ht 149.9 cm; Wt 58.1 kg
[2020-09-04 16:50] VITALS: BP 147/73
[~2020-09-04 16:50] MED LIST changes: +PROTONIX40 M2 PO
[2020-09-04 18:28] LABS: URINE CLARITY CLOUDY; URINE COLOR YELLOW; URINE LEUKOCYTES-REFLEX 3+ (Negative); URINE NITRITE-REFLEX POSITIVE (Negative)
[2020-09-04 18:29] LABS: URINE BILIRUBIN NEGATIVE (Negative); URINE BLOOD 2+ (Negative); URINE GLUCOSE-RANDOM* NEGATIVE (Negative); URINE KETONES NEGATIVE (Negative); URINE PROTEIN (DIPSTICK) 1+ (Negative); URINE UROBILINOGEN 0.2 E.U./dl (0.2-1.0)
[2020-09-04 18:40] LABS: AMORPHOUS URATES Moderate /LPF (None Seen); CASTS None Seen /LPF (None Seen); SQUAMOUS None Seen /LPF (0-3); URINE RBC 3-10 Few /HPF (NONE SEEN); URINE WBC-REFLEX >25 Many /HPF (0-5)
[2020-09-04 19:26] LABS: ABSOLUTE NEUTROPHILS 7.4 thou/uL (1.4-8.2); BASOPHILS 0.7 % (0.0-2.0); EOSINOPHILS 0.4 % (0.0-3.0); HEMATOCRIT 35.5 % (37.0-47.0); HEMOGLOBIN 11.9 gm/dL (12.0-15.0); LYMPHOCYTES 7.8 % (24.0-44.0); MCH 28.4 pg (26.0-34.0); MCHC 33.6 g/dL (28.0-37.0); MCV 84.6 fL (80.0-100.0); MONOCYTES 13.7 % (1.0-8.0); PLATELET COUNT 281 thou/uL (150-400); POLYS 77.4 % (36.0-66.0); RBC 4.19 mil/uL (4.20-5.00); WBC 9.5 thou/uL (4.0-11.0)
[2020-09-04 19:38] LABS: ANION GAP 15 mmol/L (7-16); BUN 33 mg/dL (7-18); CALCIUM 9.4 mg/dL (8.5-10.1); CHLORIDE 100 mmol/L (98-107); CO2 21 mmol/L (21-32); CREATININE 2.4 mg/dL (0.6-1.0); GLUCOSE 92 mg/dL (74-106); SODIUM 136 mmol/L (136-145)
[2020-09-04 19:49] LABS: ALBUMIN 3.4 g/dL (3.4-5.0); SGOT 19 U/L (15-37); SGPT 18 U/L (30-65); TOTAL BILIRUBIN 0.5 mg/dL (0.2-1.0); TROPONIN-I <0.06 ng/mL (<0.06)
[2020-09-05 05:19] LABS: HEMATOCRIT 31.4 % (37.0-47.0); HEMOGLOBIN 10.4 gm/dL (12.0-15.0); MCH 28.5 pg (26.0-34.0); MCHC 33.3 g/dL (28.0-37.0); MCV 85.7 fL (80.0-100.0); RBC 3.66 mil/uL (4.20-5.00); RDW 15.9 % (10.5-14.5); WBC 7.8 thou/uL (4.0-11.0)
[2020-09-05 05:20] LABS: CREATININE 2.5 mg/dL (0.6-1.0); POTASSIUM 4.4 mmol/L (3.5-5.1)
--- NOTE | 2020-09-05 07:11 | EKG ---
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[id number] Requested By: Jeffrey Desai Order Number: [id number] MD: Brad Barton Measurements Intervals [place] Rate: 95 P: 42 OK: 153 QRS: 33 QRSD: 84 T: 159 QT: 334 QTc: 420 Interpretive Statements Sinus rhythm Probable left atrial enlargement Probable LVH with secondary repol abnrm Compared to ECG 04/30/2020 20:47:32 No significant changes Electronically Signed On 09-05-2020 7:11:35 CDT by Brad Barton [email or web address] <ELECTRONICALLY SIGNED> By: Brad Barton MD, [facility] 09/05/20710 09 09 Brad Barton MD, FACC /EPI
[2020-09-05 08:40] VITALS: BP 152/73
[2020-09-05 08:55] VITALS: BP 145/74
--- NOTE | 2020-09-05 16:21 | NUR ---
PT ADMITTED RELATED TO PYELONEPHRITIS. CM REVIEWED CHART AND SPOKE WITH CARE TEAM. PT HAD BEEN HOSPITALIZED HERE 06/24/20 AND DISCHARGED HOME TO SELF CARE. CM ATTEMPTED TO VISIT WITH PT THIS AFTERNOON BUT PT WAS SLEEPING AND DIDN'T ROUSE. PER SHART REVIEW. CM ROLE INTRODUCED. PT LIVES IN A HOUSE WITH HER SPOUSE, SON, DTR IN LAW, AND THEIR 3 KIDS. THERE AREN'T ANY STEPS TO ENTER THE HOME BUT A FULL FLIGHT TO THE BASEMENT WHERE PT GOES. 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 PT WITH NO HH HX AND NO SKILLED HX. ANTICIPATE THAT PT WILL LIKELY RETURN HOME ONCE MEDICALLY STABLE. CM FOLLOWING REGARDING DC PLANNING.
[2020-09-05 16:22] VITALS: BP 109/59
--- NOTE | 2020-09-05 19:35 | NUR ---
A/O, calm and pleasant. got up to the bathroom independenlty. complained of flank pain, pain medication given and worked. no n/v.
[2020-09-05 20:16] VITALS: BP 98/62
--- NOTE | 2020-09-06 04:16 | NUR ---
PAIN LEVEL CONTROLLED WITH THE PO ANALGESIC. CONTINUES ON IV ANTIBIOTICS. NO D/C CONCERNS VOICED. RESTING QUIETLY TONIGHT.
[2020-09-06 08:20] VITALS: BP 114/61
[2020-09-06 16:31] VITALS: BP 116/60
--- NOTE | 2020-09-06 16:57 | NUR ---
Patients came to visit her and upset her to the point she asked him to leave. did leave. Patient says her argues with her all the time.Tolerating Zosyn well-no adverse effects noted. Has had pain throughout the day for her left flank side pain. Pain medications given. Still waiting on heating pad from [employer].
[2020-09-06 20:10] VITALS: BP 131/71
--- NOTE | 2020-09-07 03:47 | NUR ---
PT REMAIN ALERT AND ORIENT TIMES FOUR. UP AD CATHLEEN. SR PER MONITOR. C/O FLANK PAIN. NARCO GIVEN WITH GOOD RELIEF. SLOW PROGRES, WILL CONTINUE TO MONITOR.
[2020-09-07 08:07] VITALS: BP 132/76
[2020-09-07 14:50] VITALS: BP 134/68
--- NOTE | 2020-09-07 17:20 | NUR ---
patients came to visit her today. She has tolerated ABT Zosyn- no adverse effects noted. Has requested pain medication throughout the day FOR Left flank pain. AD CATHLEEN- steady gait.
[2020-09-07 20:33] VITALS: BP 139/78
--- NOTE | 2020-09-08 01:46 | NUR ---
ASSESSED AT START OF SHIFT. PT A&OX4 RESTING IN BED. C/O PAIN 08/30 HYDROCODONE GIVEN. PT UP AD CATHLEEN TO THE RESTROOM. WALKED AROUND THE HALLWAY TONIGHT. DENIES NAUSEA AND VOMITING NO FURTHER SIGNS OF DISCOMFORT WILL CONT TO MONITOR.
[2020-09-08 07:25] VITALS: BP 135/79
--- NOTE | 2020-09-08 09:50 | NUR ---
Patient states she has pain 7/10 left flank. Nurse gave IV fentanyl. Reassessed pain and its currently 05/31. [employer] called and asked if the heathing pad was still needed and will bring it up. Still waiting on heating pad. AD CATHLEEN-steady gait. Ate 50% of breakfast, states shes not that cora.
[2020-09-08] MEDS ORDERED: ACETAMINOPHEN325 M1 PO (14:10)
[2020-09-08] MEDS ORDERED: FLORANEX GRANU1 EACH PO (14:10)
[2020-09-08] MEDS ORDERED: CEFUROXIME500 MG PO (14:10)
[2020-09-08 14:34] VITALS: BP 135/79
--- NOTE | 2020-09-08 14:37 | NUR ---
CARE TEAM INDICATED THAT PT IS MEDICALLY STABLE TO DC HOME THIS DAY. PT IS TO DC HOME TO SELF CARE. PT'S FAMILY TO PROVIDE TRANSPORT HOME THIS DAY. NO OTHER CM INTERVENTION INDICATED. CASE CLOSED.
--- NOTE | 2020-09-08 14:50 | NUR ---
Patient d/c home. Her son came to transport her home. Right hand IV removed, pressure held, gauze appiled. Pain level currently 4/10 flank side. She did not want any pain medication. Nurse went over d/c teaching and she had no questions. Labs requested and given to pateint.
== END 2020-09-08 15:50 | disposition home or self-care (01) | DRG 871 ==
LOC: ER 16:50 → 4W 20:41 → EROBS 20:41 → 4W 09-05 08:48
PROVIDERS: Emergency Medicine; Nurse Practitioner Family; ADMIT Internal Medicine; ATTEND Internal Medicine
DX: A41.9 Sepsis, unspecified organism (principal); N17.0 Acute kidney failure with tubular necrosis; N39.0 Urinary tract infection, site not specified; N10 Acute pyelonephritis; I12.9 Hypertensive chronic kidney disease with stage 1 through stage 4 chronic kidney disease, or unspecified chronic kidney disease; N18.30 Chronic kidney disease, stage 3 unspecified; G25.81 Restless legs syndrome; F41.1 Generalized anxiety disorder; K21.9 Gastro-esophageal reflux disease without esophagitis; R33.9 Retention of urine, unspecified; Z79.899 Other long term (current) drug therapy; Z88.2 Allergy status to sulfonamides; Z85.528 Personal history of other malignant neoplasm of kidney; Z88.8 Allergy status to other drugs, medicaments and biological substances; Z88.1 Allergy status to other antibiotic agents; Z91.040 Latex allergy status; Z87.891 Personal history of nicotine dependence
CPT/HCPCS: 10045

== ENCOUNTER 2020-10-23 21:44 | Emergency (ER) | payer OTHER ==
[~2020-10-23] VITALS: Ht 149.9 cm; Wt 61.2 kg
[2020-10-23] MEDS ORDERED: TIZANIDINE HCL4 M2 PO (22:12)
[2020-10-23] MEDS ORDERED: BUDESONIDE-FO10.2 G1 INH (22:13)
[2020-10-23 22:38] LABS: URINE BILIRUBIN 1+ (Negative); URINE BLOOD 3+ (Negative); URINE CLARITY CLOUDY; URINE COLOR BROWN; URINE GLUCOSE-RANDOM* NEGATIVE (Negative); URINE KETONES NEGATIVE (Negative); URINE PROTEIN (DIPSTICK) 2+ (Negative); URINE SPECIFIC GRAVITY 1.015 (1.005-1.035); URINE UROBILINOGEN 0.2 E.U./dl (0.2-1.0)
[2020-10-23 22:44] LABS: URINE LEUKOCYTES-REFLEX 3+ (Negative); URINE NITRITE-REFLEX POSITIVE (Negative)
[2020-10-23 23:00] LABS: BACTERIA-REFLEX >30 Many /HPF (None Seen); CASTS None Seen /LPF (None Seen); CRYSTALS None Seen /LPF (None Seen); MUCUS 4-6 Moderate strn/LPF (None Seen); SQUAMOUS 0-3 Few /LPF (0-3); URINE RBC >20 Many /HPF (NONE SEEN); URINE WBC-REFLEX >25 Many /HPF (0-5)
[2020-10-23 23:19] LABS: ABSOLUTE NEUTROPHILS 4.2 thou/uL (1.4-8.2); BASOPHILS 0.7 % (0.0-2.0); EOSINOPHILS 2.7 % (0.0-3.0); HEMATOCRIT 37.6 % (37.0-47.0); HEMOGLOBIN 12.2 gm/dL (12.0-15.0); LYMPHOCYTES 16.9 % (24.0-44.0); MCH 28.1 pg (26.0-34.0); MCHC 32.6 g/dL (28.0-37.0); MCV 86.2 fL (80.0-100.0); MONOCYTES 10.2 % (1.0-8.0); PLATELET COUNT 288 thou/uL (150-400); POLYS 69.5 % (36.0-66.0); RBC 4.36 mil/uL (4.20-5.00); RDW 17.2 % (10.5-14.5); WBC 6.1 thou/uL (4.0-11.0)
[2020-10-23 23:43] LABS: CALCIUM 9.3 mg/dL (8.5-10.1); POTASSIUM 4.7 mmol/L (3.5-5.1)
[2020-10-24] MEDS ORDERED: AUGMENTIN 875-1 EACH PO (00:02)
[2020-10-24 00:35] VITALS: BP 169/82
== END 2020-10-24 00:36 | disposition home or self-care (01) ==
LOC: ER 21:44
PROVIDERS: Emergency Medicine; Physician Assistant
DX: N39.0 Urinary tract infection, site not specified (principal); R31.9 Hematuria, unspecified; K21.9 Gastro-esophageal reflux disease without esophagitis; I10 Essential (primary) hypertension; J43.9 Emphysema, unspecified; Z98.890 Other specified postprocedural states; Z90.5 Acquired absence of kidney; Z87.442 Personal history of urinary calculi; Z87.891 Personal history of nicotine dependence; Z79.891 Long term (current) use of opiate analgesic; Z79.899 Other long term (current) drug therapy; Z79.1 Long term (current) use of non-steroidal anti-inflammatories (NSAID); Z88.1 Allergy status to other antibiotic agents; Z88.2 Allergy status to sulfonamides; Z88.5 Allergy status to narcotic agent; Z88.8 Allergy status to other drugs, medicaments and biological substances; Z91.040 Latex allergy status

== ENCOUNTER 2021-01-09 16:54 | Emergency (ER) | payer OTHER ==
[~2021-01-09] VITALS: Ht 149.9 cm; Wt 61.2 kg
[~2021-01-09 16:54] MED LIST changes: +AUGMENTIN 875-1 EACH PO; +BUDESONIDE-FO10.2 G1 INH; +TIZANIDINE HCL4 M2 PO
[2021-01-09 17:03] VITALS: BP 174/99
[2021-01-09 17:37] LABS: URINE BLOOD 3+ (Negative); URINE CLARITY SL CLOUDY; URINE GLUCOSE-RANDOM* TRACE (Negative); URINE KETONES TRACE (Negative); URINE PROTEIN (DIPSTICK) 2+ (Negative); URINE SPECIFIC GRAVITY 1.015 (1.005-1.035); URINE UROBILINOGEN 0.2 E.U./dl (0.2-1.0)
[2021-01-09 17:39] LABS: URINE LEUKOCYTES-REFLEX 3+ (Negative); URINE NITRITE-REFLEX POSITIVE (Negative)
[2021-01-09 17:40] LABS: URINE COLOR AMBER
[2021-01-09 17:41] LABS: ICTOTEST (BILI CONFIRMATORY) Negative (Negative); URINE BILIRUBIN NEGATIVE (Negative)
[2021-01-09 17:55] LABS: CASTS None Seen /LPF (None Seen); CRYSTALS None Seen /LPF (None Seen); SQUAMOUS 0-3 Few /LPF (0-3); URINE RBC >20 Many /HPF (NONE SEEN); URINE WBC-REFLEX >25 Many /HPF (0-5); WBC CLUMPS Occasional (None Seen)
[2021-01-09] MEDS ORDERED: CEPHALEXIN500 MG PO (18:27)
== END 2021-01-09 18:40 | disposition home or self-care (01) ==
LOC: ER 16:54
PROVIDERS: Emergency Medicine
DX: N39.0 Urinary tract infection, site not specified (principal); R31.9 Hematuria, unspecified; I10 Essential (primary) hypertension; K21.9 Gastro-esophageal reflux disease without esophagitis; J44.9 Chronic obstructive pulmonary disease, unspecified; Z85.53 Personal history of malignant neoplasm of renal pelvis; Z90.89 Acquired absence of other organs; Z87.442 Personal history of urinary calculi; Z87.891 Personal history of nicotine dependence; Z79.891 Long term (current) use of opiate analgesic; Z79.1 Long term (current) use of non-steroidal anti-inflammatories (NSAID); Z79.899 Other long term (current) drug therapy; Z88.5 Allergy status to narcotic agent; Z88.2 Allergy status to sulfonamides; Z88.8 Allergy status to other drugs, medicaments and biological substances; Z88.1 Allergy status to other antibiotic agents; Z91.040 Latex allergy status